=== PATIENT | male | born 1945 | race Caucasian/White ===

== ENCOUNTER 2018-06-18 12:47 | Inpatient (IN) ==
[2018-06-18] MEDS ORDERED: SODIUM CHLORIDE 0.9% 2,000 ML IV STA (14:07)
[2018-06-18 14:55] LABS: Basophils % 0.2 % (0.0-0.8); Eosinophils % 0.9 % (0.00-10.9); Hematocrit 32.6 VOL% (42.0-52.0); Hemoglobin 10.5 GM/DL (14.0-18.0); Immature Granulocytes % 1.1 %; Immature Granulocytes Absolute 0.05 #; Lymphocytes # 0.3 10*3/uL (1.4-4.0); Mean Corpuscular HGB Conc 32.2 GM/DL (32-36); Mean Corpuscular Hemoglobin 31 PG (27-34); Mean Corpuscular Volume 95.9 FL (87-102); Mean Platelet Volume 9.6 FL (9.6-12.0); Monocytes # 0.6 10*3/uL (0.11-0.8); Neutrophils # 3.6 10*3/uL (1.4-7.4); Neutrophils % 78.8 % (38.7-73.9); Platelet Count 234 T/CUMM (130-400); Red Cell Distribution Width 15.4 % (9.3-17.3); White Blood Count 4.6 T/CUMM (4-12)
[2018-06-18 15:18] LABS: Apearance,Urine CLEAR (Clear); Bilirubin,Urine Negative (Negative); Blood, Urine Moderate mg/dL (Negative); Glucose,Urine (UA) Negative (Negative); Ketones,Urine Negative (Negative); Mucus,Urine Occasional /LPF (Occasional); Nitrite,Urine Negative (Negative); Protein,Urine Negative; RBC,Urine 1 /HPF (0-4); Urine Color Yellow (Yellow); Urine Specific Gravity 1.014 (1.001-1.035); Urine Urobilinogen < 2.0 EU/DL (0.2-1.0); WBC,Urine <1 /HPF (0-6)
[2018-06-18 15:39] LABS: Alanine Aminotransferase 18 U/L (16-61); Albumin 2.6 G/DL (3.4-5.0); Alkaline Phosphatase 229 U/L (45-117); Aspartate Amino Transferase 34 U/L (0-37); Bilirubin,Total < 0.39 MG/DL (0.2-1.0); Blood Urea Nitrogen 11 MG/DL (7-18); Calcium 8.8 MG/DL (8.5-10.1); Glucose 112 MG/DL (74-106); Osmolality,Calculated 269.1 MOS/KG (273-304); Potassium 4.3 MMOL/L (3.5-5.1); Sodium 135 MMOL/L (136-145); Total Protein 7.2 G/DL (6.4-8.3)
[2018-06-18] MEDS ORDERED: PROMETHAZINE 25 MG TABLET PO PRN (18:03)
[2018-06-18] MEDS ORDERED: LACTULOSE 20 GM/30 ML UDCUP PO PRN (18:03)
[2018-06-18] MEDS ORDERED: ACETAMINOPHEN 325 MG TABLET PO PRN (18:03)
[2018-06-18] MEDS ORDERED: traZODone 50 MG TABLET PO PRN (18:03)
[2018-06-18] MEDS ORDERED: DOCUSATE SODIUM 100 MG CAPSULE PO PRN (18:03)
[2018-06-18] MEDS ORDERED: PROCHLORPERAZINE 10 MG TABLET PO PRN (18:17)
[2018-06-18] MEDS ORDERED: HYDROmorphone 2 MG/1 ML VIAL IV PRN (18:30)
[2018-06-18] MEDS: DEXTROSE 5% NACL 0.9% 1,000 ML IV SCH (20:41)
[2018-06-18] MEDS: CLORAZEPATE 3.75 MG TABLET PO SCH (20:56)
[2018-06-18] MEDS: predniSONE 5 MG TABLET PO SCH (20:57)
[2018-06-18] MEDS: ENOXAPARIN 40 MG/0.4 ML SYRINGE SUBCUT SCH (20:57)
[2018-06-18] MEDS: ONDANSETRON 4 MG/2 ML VIAL IV PRN (21:14)
[2018-06-19 06:32] LABS: Basophils % 0.3 % (0.0-0.8); Eosinophils % 1.1 % (0.00-10.9); Hematocrit 29.8 VOL% (42.0-52.0); Hemoglobin 9.4 GM/DL (14.0-18.0); Immature Granulocytes % 1.1 %; Immature Granulocytes Absolute 0.04 #; Lymphocytes # 0.4 10*3/uL (1.4-4.0); Mean Corpuscular HGB Conc 31.5 GM/DL (32-36); Mean Corpuscular Hemoglobin 30 PG (27-34); Mean Corpuscular Volume 96.4 FL (87-102); Mean Platelet Volume 10.2 FL (9.6-12.0); Monocytes # 0.5 10*3/uL (0.11-0.8); Neutrophils # 2.6 10*3/uL (1.4-7.4); Neutrophils % 72.5 % (38.7-73.9); Platelet Count 212 T/CUMM (130-400); Red Blood Count 3.09 MC/CUMM (3.8-5.5); Red Cell Distribution Width 15.5 % (9.3-17.3); White Blood Count 3.6 T/CUMM (4-12)
[2018-06-19 06:33] LABS: Basophils % 0.3 % (0.0-0.8); Eosinophils % 0.8 % (0.00-10.9); Hematocrit 29.6 VOL% (42.0-52.0); Hemoglobin 9.5 GM/DL (14.0-18.0); Immature Granulocytes % 1.6 %; Immature Granulocytes Absolute 0.06 #; Lymphocytes # 0.4 10*3/uL (1.4-4.0); Lymphocytes % 10.6 % (21.2-54.2); Mean Corpuscular HGB Conc 32.1 GM/DL (32-36); Mean Corpuscular Hemoglobin 31 PG (27-34); Mean Corpuscular Volume 96.7 FL (87-102); Monocytes # 0.5 10*3/uL (0.11-0.8); Neutrophils # 2.8 10*3/uL (1.4-7.4); Neutrophils % 72.7 % (38.7-73.9); Platelet Count 209 T/CUMM (130-400); Red Blood Count 3.06 MC/CUMM (3.8-5.5); Red Cell Distribution Width 15.5 % (9.3-17.3); White Blood Count 3.8 T/CUMM (4-12)
[2018-06-19 06:38] LABS: Calcium 7.4 MG/DL (8.5-10.1); Osmolality,Calculated 279.3 MOS/KG (273-304); Potassium 4.1 MMOL/L (3.5-5.1)
[2018-06-19 06:41] LABS: % Iron Saturation 19.9 % (18-50); Ferritin 282.7 ng/ml (26-388)
[2018-06-19 07:03] LABS: Folate 8.5 NG/ML (5.4-24.0); Prostate Specific Antigen Diag 13.5 NG/ML (0-4); Vitamin B12 843 PG/ML (211-911)
[2018-06-19 08:55] LABS: Sedimentation Rate-Westergren 118 MM/HR (0-20)
[2018-06-19] MEDS: DEXTROSE 5% NACL 0.9% 1,000 ML IV SCH ×2 (09:17→21:23)
[2018-06-19] MEDS: MEGESTROL 40 MG TABLET PO SCH (09:19)
[2018-06-19] MEDS: CLOPIDOGREL 75 MG TABLET PO SCH (09:19)
[2018-06-19] MEDS: predniSONE 5 MG TABLET PO SCH ×2 (09:19→21:19)
[2018-06-19] MEDS: ONDANSETRON 4 MG/2 ML VIAL IV PRN (09:19)
[2018-06-19] MEDS: CLORAZEPATE 3.75 MG TABLET PO SCH ×2 (09:28→21:18)
[2018-06-19] MEDS ORDERED: BISACODYL 5 MG TABLET PO ONE (13:47)
[2018-06-19] MEDS: LACTULOSE 20 GM/30 ML UDCUP PO SCH ×2 (17:43→21:18)
[2018-06-19] MEDS: DOCUSATE SODIUM 100 MG CAPSULE PO SCH ×2 (17:43→21:19)
[2018-06-19] MEDS: POLYETHYLENE GLYCOL POWDER 17 GM PACK PO SCH ×2 (17:43→21:18)
[2018-06-19] MEDS: ENOXAPARIN 40 MG/0.4 ML SYRINGE SUBCUT SCH (21:19)
[2018-06-20 04:46] LABS: Basophils % 0.3 % (0.0-0.8); Hematocrit 25.9 VOL% (42.0-52.0); Hemoglobin 8.5 GM/DL (14.0-18.0); Immature Granulocytes % 1.3 %; Immature Granulocytes Absolute 0.04 #; Lymphocytes # 0.3 10*3/uL (1.4-4.0); Mean Corpuscular HGB Conc 32.8 GM/DL (32-36); Mean Corpuscular Hemoglobin 32 PG (27-34); Mean Corpuscular Volume 96.3 FL (87-102); Mean Platelet Volume 10.1 FL (9.6-12.0); Monocytes # 0.5 10*3/uL (0.11-0.8); Monocytes % 15.3 % (1.7-12.7); Neutrophils # 2.3 10*3/uL (1.4-7.4); Neutrophils % 74.1 % (38.7-73.9); Platelet Count 178 T/CUMM (130-400); Red Blood Count 2.69 MC/CUMM (3.8-5.5); Red Cell Distribution Width 14.9 % (9.3-17.3); White Blood Count 3.1 T/CUMM (4-12)
[2018-06-20 05:27] LABS: Albumin 1.9 G/DL (3.4-5.0); Bilirubin,Total 0.5 MG/DL (0.2-1.0); Calcium 7.2 MG/DL (8.5-10.1); Osmolality,Calculated 282.1 MOS/KG (273-304); Total Protein 5.7 G/DL (6.4-8.3)
[2018-06-20] MEDS: CLORAZEPATE 3.75 MG TABLET PO SCH ×2 (08:28→20:56)
[2018-06-20] MEDS: DOCUSATE SODIUM 100 MG CAPSULE PO SCH ×2 (08:28→20:56)
[2018-06-20] MEDS: CLOPIDOGREL 75 MG TABLET PO SCH (08:28)
[2018-06-20] MEDS: MEGESTROL 40 MG TABLET PO SCH (08:28)
[2018-06-20] MEDS: predniSONE 5 MG TABLET PO SCH ×2 (08:29→20:56)
[2018-06-20] MEDS: LACTULOSE 20 GM/30 ML UDCUP PO SCH ×2 (08:29→20:33)
[2018-06-20] MEDS: POLYETHYLENE GLYCOL POWDER 17 GM PACK PO SCH ×2 (08:29→20:33)
[2018-06-20] MEDS: FLUCONAZOLE 200 MG TABLET PO SCH (09:21)
[2018-06-20] MEDS: DEXTROSE 5% NACL 0.9% 1,000 ML IV SCH (10:19)
[2018-06-20 10:37] LABS: Hemoglobin A1 (Alkaline) 97.6 % (96.5-98.5); Hemoglobin A2 (Alkaline) 2.4 % (1.5-3.5)
[2018-06-20] MEDS: oxyCODONE/ACETAMINOPHEN 5-325 MG TABLET PO PRN (17:01)
[2018-06-20] MEDS: CLINDAMYCIN INJ 600 MG in PREMIX 1 EACH IV SCH (17:03)
[2018-06-20] MEDS ORDERED: diphenhydrAMINE CAP 25 MG CAPSULE PO PRN (17:22)
[2018-06-20] MEDS ORDERED: ONDANSETRON 4 MG/2 ML VIAL IV PRN (17:22)
[2018-06-20] MEDS ORDERED: ALPRAZolam 0.25 MG TABLET PO PRN (17:22)
[2018-06-20] MEDS ORDERED: chlorproMAZINE 25 MG TABLET PO PRN (17:22)
[2018-06-20] MEDS ORDERED: TEMAZEPAM 7.5 MG CAPSULE PO PRN (17:22)
[2018-06-20] MEDS ORDERED: LACTULOSE 20 GM/30 ML UDCUP PO PRN (17:22)
[2018-06-20] MEDS ORDERED: MYLANTA/LIDO VISC 2:1 300 ML BOTTLE SWISH/SPIT PRN (17:22)
[2018-06-20] MEDS ORDERED: MYLANTA/LIDO VISC 2:1 300 ML BOTTLE SWISH/SWAL PRN (17:22)
[2018-06-20] MEDS ORDERED: chlorproMAZINE INJ 50 MG in SODIUM CHLORIDE 0.9% 100 ML IV PRN (17:22)
[2018-06-20] MEDS ORDERED: chlorproMAZINE INJ 25 MG in SODIUM CHLORIDE 0.9% 100 ML IV PRN (17:22)
[2018-06-20] MEDS ORDERED: guaiFENesin 200 MG/10 ML UDCUP PO PRN (17:22)
[2018-06-20] MEDS ORDERED: BENZTROPINE 2 MG/2 ML AMP IV PRN (17:22)
[2018-06-20] MEDS ORDERED: traMADol 50 MG TABLET PO PRN (17:22)
[2018-06-20] MEDS ORDERED: ACETAMINOPHEN 325 MG TABLET PO PRN (17:22)
[2018-06-20] MEDS ORDERED: MAGNESIUM HYDROXIDE SUSP 30 ML UDCUP PO PRN (17:22)
[2018-06-20] MEDS ORDERED: PROMETHAZINE INJ 25 MG in SODIUM CHLORIDE 0.9% 50 ML IV PRN (17:22)
[2018-06-20] MEDS ORDERED: LOPERAMIDE 2 MG CAPSULE PO PRN ×2 (17:22)
[2018-06-20] MEDS: ALUMINUM/MAGNES/SIMETH MAX STR 30 ML UDCUP PO PRN (18:06)
[2018-06-20] MEDS: ENOXAPARIN 40 MG/0.4 ML SYRINGE SUBCUT SCH (20:56)
[2018-06-21] MEDS: ALUMINUM/MAGNES/SIMETH MAX STR 30 ML UDCUP PO PRN (00:16)
[2018-06-21] MEDS: CLINDAMYCIN INJ 600 MG in PREMIX 1 EACH IV SCH ×3 (00:16→16:40)
[2018-06-21] MEDS: DEXTROSE 5% NACL 0.9% 1,000 ML IV SCH (00:17)
[2018-06-21 05:01] LABS: Basophils % 0.3 % (0.0-0.8); Eosinophils % 1.2 % (0.00-10.9); Hematocrit 26.1 VOL% (42.0-52.0); Hemoglobin 8.4 GM/DL (14.0-18.0); Immature Granulocytes % 1.2 %; Immature Granulocytes Absolute 0.04 #; Lymphocytes # 0.2 10*3/uL (1.4-4.0); Lymphocytes % 6.9 % (21.2-54.2); Mean Corpuscular HGB Conc 32.2 GM/DL (32-36); Mean Corpuscular Hemoglobin 31 PG (27-34); Mean Corpuscular Volume 95.6 FL (87-102); Mean Platelet Volume 10.1 FL (9.6-12.0); Monocytes # 0.4 10*3/uL (0.11-0.8); Monocytes % 12.4 % (1.7-12.7); Neutrophils # 2.6 10*3/uL (1.4-7.4); Platelet Count 183 T/CUMM (130-400); Red Blood Count 2.73 MC/CUMM (3.8-5.5); Red Cell Distribution Width 14.8 % (9.3-17.3); White Blood Count 3.3 T/CUMM (4-12)
[2018-06-21 05:30] LABS: Albumin 1.9 G/DL (3.4-5.0); Bilirubin,Total 0.4 MG/DL (0.2-1.0); Calcium 7.2 MG/DL (8.5-10.1); Osmolality,Calculated 281.1 MOS/KG (273-304); Potassium 3.9 MMOL/L (3.5-5.1); Total Protein 5.3 G/DL (6.4-8.3); Uric Acid 2.9 MG/DL (3.5-7.2)
[2018-06-21] MEDS: oxyCODONE/ACETAMINOPHEN 5-325 MG TABLET PO PRN ×3 (07:40→19:41)
[2018-06-21] MEDS: MEGESTROL 40 MG TABLET PO SCH (08:41)
[2018-06-21] MEDS: DOCUSATE SODIUM 100 MG CAPSULE PO SCH ×2 (08:41→20:27)
[2018-06-21] MEDS: CLORAZEPATE 3.75 MG TABLET PO SCH ×2 (08:41→20:27)
[2018-06-21] MEDS: FLUCONAZOLE 200 MG TABLET PO SCH (08:41)
[2018-06-21] MEDS: CLOPIDOGREL 75 MG TABLET PO SCH (08:42)
[2018-06-21] MEDS: predniSONE 5 MG TABLET PO SCH ×2 (08:42→20:27)
[2018-06-21] MEDS: LACTULOSE 20 GM/30 ML UDCUP PO SCH ×2 (08:43→20:48)
[2018-06-21] MEDS: POLYETHYLENE GLYCOL POWDER 17 GM PACK PO SCH ×2 (08:43→20:48)
[2018-06-21] MEDS ORDERED: FUROSEMIDE 40 MG/4 ML VIAL IV ONE (09:20)
[2018-06-21] MEDS ORDERED: FUROSEMIDE 20 MG/2 ML VIAL ONE (09:52)
[2018-06-21] MEDS: oxyCODONE ER 10 MG TABLET PO SCH ×2 (09:58→20:27)
[2018-06-21] MEDS: ENOXAPARIN 40 MG/0.4 ML SYRINGE SUBCUT SCH (20:27)
[2018-06-22] MEDS: CLINDAMYCIN INJ 600 MG in PREMIX 1 EACH IV SCH ×3 (00:03→17:44)
[2018-06-22] MEDS: oxyCODONE/ACETAMINOPHEN 5-325 MG TABLET PO PRN ×3 (00:09→19:42)
[2018-06-22] MEDS: DEXTROSE 5% NACL 0.9% 1,000 ML IV SCH (08:37)
[2018-06-22] MEDS: DOCUSATE SODIUM 100 MG CAPSULE PO SCH ×2 (09:27→21:54)
[2018-06-22] MEDS: CLOPIDOGREL 75 MG TABLET PO SCH (09:27)
[2018-06-22] MEDS: FLUCONAZOLE 200 MG TABLET PO SCH (09:27)
[2018-06-22] MEDS: MEGESTROL 40 MG TABLET PO SCH (09:27)
[2018-06-22] MEDS: CLORAZEPATE 3.75 MG TABLET PO SCH ×2 (09:27→21:54)
[2018-06-22] MEDS: oxyCODONE ER 10 MG TABLET PO SCH ×2 (09:28→21:54)
[2018-06-22] MEDS: LACTULOSE 20 GM/30 ML UDCUP PO SCH ×2 (09:28→21:54)
[2018-06-22] MEDS: POLYETHYLENE GLYCOL POWDER 17 GM PACK PO SCH ×2 (09:29→21:54)
[2018-06-22] MEDS: predniSONE 5 MG TABLET PO SCH ×2 (09:30→21:54)
[2018-06-22] MEDS: BISACODYL 5 MG TABLET PO PRN (14:03)
[2018-06-22] MEDS: ALUMINUM/MAGNES/SIMETH MAX STR 30 ML UDCUP PO PRN (17:44)
[2018-06-22] MEDS: ENOXAPARIN 40 MG/0.4 ML SYRINGE SUBCUT SCH (21:54)
[2018-06-23] MEDS: CLINDAMYCIN INJ 600 MG in PREMIX 1 EACH IV SCH ×2 (01:22→10:05)
[2018-06-23] MEDS: oxyCODONE/ACETAMINOPHEN 5-325 MG TABLET PO PRN ×2 (02:29→07:13)
[2018-06-23 05:48] LABS: Basophils % 0.5 % (0.0-0.8); Eosinophils % 0.5 % (0.00-10.9); Hematocrit 28.1 VOL% (42.0-52.0); Hemoglobin 9.1 GM/DL (14.0-18.0); Immature Granulocytes Absolute 0.04 #; Lymphocytes # 0.3 10*3/uL (1.4-4.0); Lymphocytes % 8.1 % (21.2-54.2); Mean Corpuscular HGB Conc 32.4 GM/DL (32-36); Mean Corpuscular Hemoglobin 31 PG (27-34); Mean Corpuscular Volume 94.6 FL (87-102); Mean Platelet Volume 10.3 FL (9.6-12.0); Monocytes # 0.4 10*3/uL (0.11-0.8); Monocytes % 10.4 % (1.7-12.7); Neutrophils # 3.1 10*3/uL (1.4-7.4); Neutrophils % 79.5 % (38.7-73.9); Platelet Count 194 T/CUMM (130-400); Red Blood Count 2.97 MC/CUMM (3.8-5.5); Red Cell Distribution Width 15.5 % (9.3-17.3); White Blood Count 3.8 T/CUMM (4-12)
[2018-06-23] MEDS: BISACODYL 5 MG TABLET PO PRN (10:05)
[2018-06-23] MEDS: MEGESTROL 40 MG TABLET PO SCH (10:05)
[2018-06-23] MEDS: oxyCODONE ER 10 MG TABLET PO SCH (10:05)
[2018-06-23] MEDS: predniSONE 5 MG TABLET PO SCH (10:05)
[2018-06-23] MEDS: FLUCONAZOLE 200 MG TABLET PO SCH (10:05)
[2018-06-23] MEDS: DOCUSATE SODIUM 100 MG CAPSULE PO SCH (10:05)
[2018-06-23] MEDS: CLOPIDOGREL 75 MG TABLET PO SCH (10:07)
[2018-06-23] MEDS: CLORAZEPATE 3.75 MG TABLET PO SCH (10:09)
[2018-06-23] MEDS: POLYETHYLENE GLYCOL POWDER 17 GM PACK PO SCH (11:13)
[2018-06-23] MEDS: LACTULOSE 20 GM/30 ML UDCUP PO SCH (11:13)
[2018-06-23 11:58] VITALS: BP 110/67
== END 2018-06-23 15:05 | disposition swing bed (61) | DRG 641 ==
LOC: N.ED 12:47 → N.2E 12:47 → SUATTDRO 18:03 → N.4E 20:02
PROVIDERS: ADMIT Hospitalist; ATTEND Specialist